=== PATIENT | female | born 1995 | race Caucasian/White ===

== ENCOUNTER 2020-01-29 18:44 | Observation (INO) | payer OTHER ==
[~2020-01-29] VITALS: Ht 152.4 cm; Wt 57.6 kg
[2020-01-29 18:49] VITALS: BP 122/68
--- NOTE | 2020-01-29 18:55 | NUR ---
AMB TO 5
--- NOTE | 2020-01-29 19:29 | NUR ---
PT STATRTED HAVING LEFT SIDE PAIN RADIATING INTO UPPER ABD X 4 DAYS AGO. HAS GOTTEN WORSE OVER THE PAST DAYS WITH TODAY HAVING BAD STABBING PAIN 7/10. SHE ALSO STARTED HAVING NAUSEA AND VOMITED X 3 TIMES TODAY. DENIES DIARRHEA, NO PAIN WITH URINATION. AFEBRILE. BED IN LOWEST POSITION AND SIDERAIL UP X 1 NKA NO HX
--- NOTE | 2020-01-29 19:29 | NUR ---
MD GARCIA AT BEDSIDE
[2020-01-29] MEDS ORDERED: ALUMINUM HYD/MAG/SIMETHICONE 30 ML UDC PO ONE (19:35)
[2020-01-29] MEDS ORDERED: IBUPROFEN 600 MG TAB PO ONE (19:35)
[2020-01-29] MEDS ORDERED: ONDANSETRON 4 MG ODT PO ONE (19:35)
--- NOTE | 2020-01-29 19:44 | NUR ---
PT TAKEN TO CT VIA WHEELCHAIR
[2020-01-29] MEDS ORDERED: LACTATED RINGERS 1,000 ML IV ONE (20:35)
[2020-01-29 20:45] LABS: BASOPHILS % (AUTO) 0.2 % (0.0-2.0); EOSINOPHILS # (AUTO) 0.1 K/uL (0-0.4); EOSINOPHILS % (AUTO) 0.3 % (0.0-4.0); HEMATOCRIT 39.3 % (36-48); HEMOGLOBIN 12.9 g/dL (12.0-16.0); LYMPHOCYTES # (AUTO) 1.6 K/uL (2.5-16.5); LYMPHOCYTES % (AUTO) 9.8 % (20.5-51.1); MEAN CORPUSCULAR HEMOGLOBIN 28 pg (27-31); MEAN CORPUSCULAR HGB CONC 33 g/dL (33-37); MEAN CORPUSCULAR VOLUME 85.1 fL (80-94); MONOCYTES # (AUTO) 0.5 K/uL (0.8-1.0); MONOCYTES % (AUTO) 3.3 % (1.7-9.3); NEUTROPHILS % (AUTO) 86.4 % (42.2-75.2); PLATELET COUNT (AUTO) 317 K/uL (140-450); RED BLOOD CELL COUNT(AUTO) 4.62 MIL/uL (4.20-5.40); RED CELL DISTRIBUTION WIDTH 13.6 % (11.6-13.7); WHITE BLOOD COUNT (AUTO) 16.2 K/uL (4.8-10.8)
[2020-01-29] MEDS ORDERED: ONDANSETRON 4 MG/2 ML VIAL IVP PRN ×2 (20:45→21:45)
[2020-01-29] MEDS ORDERED: MORPHINE SULFATE 4 MG/ML SYR IVP PRN (20:45)
[2020-01-29] MEDS ORDERED: MORPHINE SULFATE 2 MG/ML SYR IVP PRN (20:45)
[2020-01-29] MEDS ORDERED: ACETAMINOPHEN 325 MG TAB PO PRN (20:45)
--- NOTE | 2020-01-29 20:47 | NUR ---
CORRY TEST COLLECTED AND TAKEN TO LAB
--- NOTE | 2020-01-29 20:48 | NUR ---
SPOKE TO PT'S MOM, ASHUTOSH. UPDATED HER ON DAUGHTER'S STATUS. MOM'S NUMBER [phone]
[2020-01-29] MEDS ORDERED: TOP25 PO (20:56)
[2020-01-29] MEDS ORDERED: VITA400T14 PO (20:56)
[2020-01-29] MEDS: PIPERACILLIN/TAZOBACTAM 3.375 GM in DEXTROSE 5% 50 ML IV SCH (21:05)
[2020-01-29 21:14] LABS: ALBUMIN 4.5 g/dL (3.4-5.0); ANION GAP 15.8 (8-16); CARBON DIOXIDE 24.8 mmol/L (21-32); CREATININE 0.7 mg/dL (0.6-1.3); POTASSIUM 3.6 mmol/L (3.5-5.1); TOTAL BILIRUBIN 0.3 mg/dL (0.0-1.0)
[2020-01-29] MEDS ORDERED: BUPIVACAINE-MPF 0.25% 30 ML VIAL INJ ONE (21:41)
[2020-01-29] MEDS ORDERED: LIDOCAINE 1% 500 MG/50 ML VIAL ONE (21:42)
[2020-01-29] MEDS ORDERED: HYDROmorphone 1 MG/ML AMP IVP PRN (21:45)
[2020-01-29] MEDS ORDERED: MEPERIDINE 25 MG/ML SYR IVP PRN (21:45)
--- NOTE | 2020-01-29 21:52 | NUR ---
Patient will be admitted to care of DR MONAE. Admited to OR. Will go to room 102 AFTER SURGERY. Belongings list completed. Report to RAUL LAW TUTOR.
[2020-01-29] MEDS ORDERED: PROPOFOL 200 MG/20 ML VIAL IV ONE (22:01)
[2020-01-29] MEDS ORDERED: ROCURONIUM 50 MG/5 ML VIAL IV ONE (22:01)
[2020-01-29] MEDS ORDERED: SUCCINYLCHOLINE CHLORIDE 200 MG/10 ML VIAL IVP ONE (22:01)
[2020-01-29] MEDS ORDERED: GLYCOPYRROLATE 0.2 MG/ML VIAL ONE (22:01)
[2020-01-29] MEDS ORDERED: ONDANSETRON 4 MG/2 ML VIAL ONE (22:01)
[2020-01-29] MEDS ORDERED: SEVOFLURANE 250 ML BTL INH ONE (22:01)
[2020-01-29] MEDS ORDERED: HYDROmorphone PFS 2 MG/ML SYR ONE (23:25)
[2020-01-29] MEDS: KETOROLAC 60 MG/2 ML VIAL IM ONE ×2 (23:28→23:29)
[2020-01-29] MEDS ORDERED: HYDROmorphone 1 MG/ML AMP IM/IV PRN (23:40)
[2020-01-30] VITALS (7 sets, daily range): BP systolic 99–111; BP diastolic 56–72
--- NOTE | 2020-01-30 00:30 | NUR ---
RECEIVED BEDSIDE REPORT FROM OR NURSE FOR CONTINUITY OF CARE. PT ARRIVED VIA GURNEY. AWAKE AND ALERT. A&OX4, ON RA. BREATHING IS UNLABORED. CHEST RISE AND FALL IS SYMMETRICAL. NO DISTRESS NOTED. PT STATES PAIN IS AT A 4/10 IN THE LOWER ABDOMEN WITH AN ACHING SENSATION. 3 INCISIONAL SITES FOR S/P APPENDECTOMY LAPAROSCOPIC. BANDAIDS COVERING SITE AND MINIMAL DRAINAGE ON BANDAGE. BOWEL SOUNDS ARE HYPOACTIVE. SKIN IS WARM AND DRY. IV IS IN THE LEFT AC RUNNING NS AT 100 ML PER HOUR. PLAN OF CARE DISCUSSED. WILL CONTINUE TO MONITOR FOR PAIN AND INFECTION. BED IS IN THE LOWEST POSITION AND CALL LIGHT IS WITHIN REACH. SCD'S ARE IN PLACE FOR BLOOD CLOT PREVENTION.
[2020-01-30] MEDS: NACL 0.9% 1,000 ML IV SCH ×2 (00:53→06:05)
--- NOTE | 2020-01-30 01:40 | NUR ---
PT IS ASLEEP. NO DISTRESS OR PAIN NOTED. CHEST RISE AND FALL IS SYMMETRICAL. IV FLUIDS ARE INFUSING AND PATENT. BED IS IN THE LOWEST POSITION. VS ARE STABLE. WILL CONTINUE TO MONITOR VS FOLLOWING LAPAROSCOPIC APPENDECTOMY.
--- NOTE | 2020-01-30 04:00 | NUR ---
ROUNDED ON PT. PT IS ASLEEP. NO DISTRESS OR PAIN NOTED. CHEST RISE AND FALL IS SYMMETRICAL. SCD'S ARE IN PLACE. IV IS PATENT AND INFUSING NS. WILL CONTINUE TO MONITOR.
--- NOTE | 2020-01-30 05:00 | NUR ---
PT ASKED FOR ASSISTANCE TO THE RESTROOM. PT WAS ABLE TO VOID. FIRST VOID SINCE SURGERY. PT IS BACK IN BED IN SEMI FOWLERS POSITION, WATCHING TV. PT IS STABLE AT THIS TIME.
[2020-01-30] MEDS ORDERED: PIPERACILLIN/TAZOBACTAM 3.375 GM VIAL IV ONE (05:15)
[2020-01-30] MEDS: IBUPROFEN 600 MG TAB PO PRN ×2 (05:29→12:18)
--- NOTE | 2020-01-30 05:29 | NUR ---
PT COMPLAINS OF PAIN IN THE CHEST AND LOWER ABDOMEN AREA. PT SAID PAIN IS A 3/10 AND IS AN ACHING PAIN. PT WAS OFFERED AND ADMINISTERED MOTRIN PRN. WILL CONTINUE TO MONITOR FOR PAIN.
[2020-01-30] MEDS: PIPERACILLIN/TAZOBACTAM 3.375 GM in DEXTROSE 5% 50 ML IV SCH ×2 (05:31→12:19)
[2020-01-30] MEDS: DEXT 5% /NACL 0.9% 1,000 ML IV SCH ×2 (06:45→08:15)
--- NOTE | 2020-01-30 07:05 | NUR ---
ENDORSED PT TO DAY SHIFT NURSE FOR CONTINUITY OF CARE. PT IS STABLE AT THIS TIME. PLAN OF CARE WAS DISCUSSED.
[2020-01-30 07:15] LABS: ANION GAP 14.3 (8-16); CARBON DIOXIDE 24.6 mmol/L (21-32); CREATININE 0.8 mg/dL (0.6-1.3); POTASSIUM 3.9 mmol/L (3.5-5.1)
[2020-01-30 07:18] LABS: BASOPHILS % (AUTO) 0.1 % (0.0-2.0); HEMATOCRIT 36.7 % (36-48); HEMOGLOBIN 12.2 g/dL (12.0-16.0); LYMPHOCYTES # (AUTO) 1.2 K/uL (2.5-16.5); LYMPHOCYTES % (AUTO) 10.4 % (20.5-51.1); MEAN CORPUSCULAR HEMOGLOBIN 28 pg (27-31); MEAN CORPUSCULAR HGB CONC 33 g/dL (33-37); MEAN CORPUSCULAR VOLUME 84.8 fL (80-94); MONOCYTES # (AUTO) 0.1 K/uL (0.8-1.0); MONOCYTES % (AUTO) 1.1 % (1.7-9.3); NEUTROPHILS # (AUTO) 10.2 K/uL (1.8-7.7); NEUTROPHILS % (AUTO) 88.4 % (42.2-75.2); PLATELET COUNT (AUTO) 314 K/uL (140-450); RED BLOOD CELL COUNT(AUTO) 4.33 MIL/uL (4.20-5.40); RED CELL DISTRIBUTION WIDTH 13.2 % (11.6-13.7); WHITE BLOOD COUNT (AUTO) 11.5 K/uL (4.8-10.8)
--- NOTE | 2020-01-30 08:00 | NUR ---
RECEIVED REPORT FROM HAVEN CARNEY. PATIENT ALERT AWAKE ORIENTED X4, NOT IN ANY DISTRESS NOTED. INITIAL ASSESSMENT INITIATED. WITH IVF ON GOING AND INFUSING WELL. SURGICAL INCISION DRY AND CLEAN. DENIES PAIN AT THIS TIME. ENCOURAGED TO AMBULATE. WILL CONTINUE TO MONITOR.
--- NOTE | 2020-01-30 09:06 | NUR ---
PATIENT HAS BEEN SCREENED AND CATEGORIZED LOW NUTRITION RISK. PATIENT WILL BE SEEN WITHIN 7 DAYS OF ADMISSION. 02/05/[address]
[2020-01-30] MEDS ORDERED: IBUP-2213 PO (12:54)
[2020-01-30] MEDS ORDERED: CIPR500T4 PO (12:54)
[2020-01-30] MEDS ORDERED: METR250T2 PO (12:54)
--- NOTE | 2020-01-30 14:00 | NUR ---
DISCHARGE VIA WHEELCHAIR WITH DISCHARGE INSTRUCTION AND PRESCRIPTION GIVEN AND VERBALIZED UNDERSTANDING.
== END 2020-01-30 13:55 | disposition home or self-care (01) ==
LOC: MED 18:44 → MTU 20:47
PROVIDERS: ADMIT Internal Medicine; ATTEND Internal Medicine
DX: K35.80 Unspecified acute appendicitis (principal); Z20.828 Contact with and (suspected) exposure to other viral communicable diseases; R11.2 Nausea with vomiting, unspecified; D72.829 Elevated white blood cell count, unspecified; K59.00 Constipation, unspecified
CPT/HCPCS: 36415; 44970; 74176; 80048; 80053; 82374; 85025; 87081; 87426; 88304; 96361; 96365; 96366; 99285; G0378; J0330; J1170; J1885; J2001; J2405; J2543; J2704; J3490; J7030; J7060; J7120; Q0162; 96360

== ENCOUNTER 2021-07-29 20:15 | Emergency (ER) | payer OTHER ==
[~2021-07-29] VITALS: Ht 152.4 cm; Wt 57.6 kg
[~2021-07-29 20:15] MED LIST: CIPR500T4 PO; IBUP-2213 PO; METR-520 PO; TOP25 PO; VITA400T14 PO
[2021-07-29 20:25] VITALS: BP 122/68
--- NOTE | 2021-07-29 21:33 | NUR ---
PT AMBULATED TO BED #2
--- NOTE | 2021-07-29 21:44 | NUR ---
Patient BIB by family from home. C/O lower back pain x3 days. Patient reported, had lower back pain for 3 days. A/O,X4, lower back pain, pain rate 6/10, no numbness and tingling.
--- NOTE | 2021-07-29 22:11 | NUR ---
Dr. Keenan at bedside to exam patient.
[2021-07-29] MEDS ORDERED: GABAPENTIN 300 MG CAP PO ONE (22:25)
[2021-07-29] MEDS ORDERED: KETOROLAC 60 MG/2 ML VIAL IM ONE (22:25)
[2021-07-29] MEDS ORDERED: CYCLOBENZAPRINE 10 MG TAB PO ONE (22:25)
[2021-07-29] MEDS ORDERED: ACETAMINOPHEN EXTRA STRENGTH 500 MG TAB PO ONE (22:25)
[2021-07-29] MEDS ORDERED: CYCL-711 PO (22:31)
[2021-07-29] MEDS ORDERED: IBUP-2213 PO (22:31)
[2021-07-29] MEDS ORDERED: GABA300C PO (22:31)
[2021-07-29] MEDS ORDERED: ACET-10509 PO (22:31)
[2021-07-29 23:35] VITALS: BP 122/68
--- NOTE | 2021-07-29 23:35 | NUR ---
Patient discharged with v/s stable. Written and verbal after care instructions given and explained. Patient alert, oriented and verbalized understanding of instructions. Ambulatory with steady gait. All questions addressed prior to discharge. ID band removed. Patient advised to follow up with PMD. Rx of Neurontin, Tylenol and Flexeril given. Patient educated on indication of medication including possible reaction and side effects. Opportunity to ask questions provided and answered.
== END 2021-07-29 23:35 | disposition home or self-care (01) ==
LOC: MED 20:15
DX: S39.012A Strain of muscle, fascia and tendon of lower back, initial encounter (principal); Z79.899 Other long term (current) drug therapy; X58.XXXA Exposure to other specified factors, initial encounter; Y93.89 Activity, other specified; Y92.89 Other specified places as the place of occurrence of the external cause; Y99.8 Other external cause status
CPT/HCPCS: 81025; 96372; 99284; J1885